=== PATIENT | female | born 1950 | race African-American/Black ===

== ENCOUNTER 2016-06-08 16:01 | Emergency (ER) | payer OTHER ==
[~2016-06-08] VITALS: Ht 165.1 cm; Wt 75.8 kg
--- NOTE | ~2016-06-08 | EKG ---
[address] [place] [address] ELECTROCARDIOGRAM REPORT Name: HILDA FIGUEROA Room #: [facility]#: [id number] Admission: 06/08/16 Attend Phys: Discharge: 06/08/16 Date of : 52 Report #: [id number] THIS REPORT FOR: //name// [facility] ED Test Date: 2016-06-08 Test Time: 16:28:35 Pat Name: HILDA ONEILL Department: Room: Gender: F Librarian Helper: elkin : 1950 Requested By: Apryl Quintero Order Number: [id number] MD: Antwan Cutler Measurements Intervals [place] Rate: 66 P: 47 RI: 160 QRS: 19 QRSD: 93 T: 17 QT: 384 QTc: 403 Interpretive Statements Sinus rhythm Normal tracing No previous ECG available for comparison Electronically Signed On 06-09-2016 13:34:21 [employer] by Antwan Cutler [email or web address] <ELECTRONICALLY SIGNED> By: Antwan Cutler MD, MERGED WITH [facility] 06/09/16 1334 1628 1628 Antwan Cutler MD, FACC /EPI
[~2016-06-08 16:01] MED LIST: ADULT LOW DOSE81 MG PO; AMOXICILLIN500 M1 PO; ASA5UEC PO; ASA81BEC PO; BIAXIN 500 MG500 M2 PO; COUMADIN 5 MG TA5 M1 PO; IRON OR; LIPITOR40 MG PO; LISINOPRIL2.5 MG; LISINOPRIL40 MG PO; LOVENOX SC; NORVASC 5 MG TAB5 MG PO; PRILOSEC 20 MG20 MG PO
[2016-06-08 16:16] LABS: URINE BILIRUBIN NEGATIVE (Negative); URINE BLOOD NEGATIVE (Negative); URINE COLOR YELLOW; URINE GLUCOSE-RANDOM* NEGATIVE (Negative); URINE KETONES NEGATIVE (Negative); URINE NITRITE NEGATIVE (Negative); URINE PROTEIN (DIPSTICK) NEGATIVE (Negative); URINE SPECIFIC GRAVITY >= 1.030 (1.003-1.035)
[2016-06-08] MEDS ORDERED: CRESTOR20 MG PO (16:29)
[2016-06-08 16:34] LABS: ABSOLUTE NEUTROPHILS 4.1 thou/uL (1.4-8.2); BASOPHILS 1.2 % (0.0-2.0); EOSINOPHILS 5.1 % (0.0-3.0); HEMATOCRIT 35.8 % (37.0-47.0); HEMOGLOBIN 11.7 gm/dL (12.0-15.0); LYMPHOCYTES 35.3 % (24.0-44.0); MCHC 32.8 % (28.0-37.0); MCV 85.5 fL (80.0-100.0); MONOCYTES 5.9 % (1.0-8.0); PLATELET COUNT 180 thou/uL (150-400); POLYS 52.5 % (36.0-66.0); RBC 4.19 mil/uL (4.20-5.00); RDW 15.4 % (10.5-14.5); WBC 7.8 thou/uL (4.0-11.0)
[2016-06-08 16:44] LABS: MANUAL DIFF NO
[2016-06-08 16:51] LABS: ANION GAP 11 mmol/L (7-16); BUN 16 mg/dL (7-18); CALCIUM 8.8 mg/dL (8.5-10.1); CHLORIDE 107 mmol/L (98-107); CO2 25 mmol/L (21-32); CREATININE 0.7 mg/dL (0.6-1.3); GLUCOSE 152 mg/dL (70-99); POTASSIUM 4.1 mmol/L (3.5-5.1); SODIUM 143 mmol/L (136-145)
[2016-06-08 16:55] LABS: ALBUMIN 3.8 g/dL (3.4-5.0); ALKALINE PHOSPHATASE 110 U/L (46-116); SGOT 27 U/L (15-37); SGPT 42 U/L (30-65); TOTAL BILIRUBIN 0.2 mg/dL (<0.1-1.0); TOTAL PROTEIN 7.4 g/dL (6.4-8.2); TROPONIN-I < 0.04 ng/mL (<0.04-0.07)
[2016-06-08 17:11] LABS: INR 2.3; PROTIME 24.1 Seconds (9.3-11.4)
[2016-06-08 17:59] VITALS: BP 159/79
== END 2016-06-08 18:00 | disposition home or self-care (01) ==
LOC: ER 16:01
PROVIDERS: Physician Assistant
DX: R42 Dizziness and giddiness (principal); I10 Essential (primary) hypertension; E78.5 Hyperlipidemia, unspecified; F17.210 Nicotine dependence, cigarettes, uncomplicated

== ENCOUNTER → 2020-07-14 | Outpatient (CLI) | payer OTHER ==
[~2020-07-14] MED LIST changes: +CRESTOR20 MG PO; +KEFLEX500 MG PO
== END ==
LOC: SJCVC 13:42
PROVIDERS: ATTEND Internal Medicine Cardiovascular Disease
DX: R94.31 Abnormal electrocardiogram [ECG] [EKG] (principal); I25.10 Atherosclerotic heart disease of native coronary artery without angina pectoris; I10 Essential (primary) hypertension; E78.00 Pure hypercholesterolemia, unspecified; I77.9 Disorder of arteries and arterioles, unspecified; I73.9 Peripheral vascular disease, unspecified; I35.0 Nonrheumatic aortic (valve) stenosis; J43.9 Emphysema, unspecified; E66.9 Obesity, unspecified; Z68.39 Body mass index [BMI] 39.0-39.9, adult; F17.210 Nicotine dependence, cigarettes, uncomplicated; Z79.82 Long term (current) use of aspirin; Z79.899 Other long term (current) drug therapy

== ENCOUNTER → 2020-08-18 | Outpatient (CLI) | payer OTHER | LOC: SJCVCIMAG 07:34 | PROVIDERS: ATTEND Internal Medicine Cardiovascular Disease | DX: I08.8 Other rheumatic multiple valve diseases (principal); I25.10 Atherosclerotic heart disease of native coronary artery without angina pectoris; I10 Essential (primary) hypertension; I73.9 Peripheral vascular disease, unspecified; E78.5 Hyperlipidemia, unspecified; I65.23 Occlusion and stenosis of bilateral carotid arteries; K55.1 Chronic vascular disorders of intestine; Z95.820 Peripheral vascular angioplasty status with implants and grafts; Z87.891 Personal history of nicotine dependence; Z79.82 Long term (current) use of aspirin; Z79.899 Other long term (current) drug therapy ==

== ENCOUNTER → 2021-01-23 | Outpatient (CLI) | payer OTHER | LOC: SJCVC 14:31 | PROVIDERS: ATTEND Internal Medicine Cardiovascular Disease | DX: I49.1 Atrial premature depolarization (principal); I25.10 Atherosclerotic heart disease of native coronary artery without angina pectoris; I10 Essential (primary) hypertension; E78.00 Pure hypercholesterolemia, unspecified; I65.23 Occlusion and stenosis of bilateral carotid arteries; I73.9 Peripheral vascular disease, unspecified; K55.1 Chronic vascular disorders of intestine; I35.0 Nonrheumatic aortic (valve) stenosis; J43.9 Emphysema, unspecified; F17.210 Nicotine dependence, cigarettes, uncomplicated; Z79.82 Long term (current) use of aspirin; Z79.899 Other long term (current) drug therapy ==